=== PATIENT | male | born 1955 | race Caucasian/White ===

== ENCOUNTER 2022-02-14 11:22 | Inpatient (IN) | payer MEDICARE, MEDICAID ==
[~2022-02-14] VITALS: Ht 172.7 cm; Wt 82.7 kg
[~2022-02-14 11:22] MED LIST: ASPI-1497 PO; ATOR10TA69 PO; GLIP10TA10 PO; LEVO100T9 PO; LISI30TA36 PO; METF-416 PO
[2022-02-14] MEDS ORDERED: PANTOPRAZOLE 80 MG in SODIUM CHLORIDE 0.9% 100 ML IV SCH ×2 (12:00→14:00)
[2022-02-14 13:53] LABS: BASOPHILS % 0.4 % (0.0-2.0); EOSINOPHILS % 0.3 % (0.0-5.0); LYMPHOCYTES % 10.6 % (20.0-50.0); MEAN CORPUSCULAR HEMOGLOBIN 23.9 pg (28.0-32.0); MEAN CORPUSCULAR VOLUME 76.7 fL (80.0-94.0); MEAN PLATELET VOLUME 7.3 fl (7.4-10.4); MONOCYTES % 7.1 % (2.0-8.0); NEUTROPHILS % 81.6 % (40.0-76.0); PLATELET 177 x1000/uL (130-400); RED BLOOD CELL COUNT 2.55 mill/uL (4.7-6.1); RED CELL DISTRIBUTION WIDTH 21.1 % (11.6-14.6)
[2022-02-14 14:00] LABS: CHLORIDE 103 mEq/L (98-107)
[2022-02-14 14:01] LABS: HEMATOCRIT. 19.6 % (42.0-52.0); HEMOGLOBIN. 6.1 g/dL (14.0-18.0)
[2022-02-14 14:07] LABS: INR 1.1; PARTIAL THROMBOPLASTIN TIME 23.7 sec (23.4-31.0); PROTHROMBIN TIME 11.3 sec (9.6-11.0)
[2022-02-14 17:18] LABS: CLARITY URINE CLEAR (CLEAR); COLOR URINE YELLOW (YELLOW); KETONES URINE NEGATIVE (NEGATIVE); LEUKOCYTE ESTERASE URINE 1+ (NEGATIVE); NITRITE URINE NEGATIVE (NEGATIVE); OCCULT BLOOD URINE NEGATIVE (NEGATIVE); PROTEIN URINE TRACE (NEGATIVE); UROBILINOGEN URINE 0.2 E.U./dL (0.2-1.0)
[2022-02-14 22:07] VITALS: BP 128/68
[2022-02-14 22:10] VITALS: BP 128/68
[2022-02-14] MEDS ORDERED: DEXTROSE 50% WATER 50ML SYRINGE IV PRN (23:45)
[2022-02-15] VITALS (11 sets, daily range): BP systolic 105–127; BP diastolic 51–70
[2022-02-15 01:01] LABS: BASOPHILS % 0.6 % (0.0-2.0); EOSINOPHILS % 1.2 % (0.0-5.0); HEMATOCRIT. 21.7 % (42.0-52.0); LYMPHOCYTES % 16.2 % (20.0-50.0); MEAN CORPUSCULAR HEMOGLOBIN 24.8 pg (28.0-32.0); MEAN CORPUSCULAR VOLUME 78.1 fL (80.0-94.0); MONOCYTES % 7.7 % (2.0-8.0); NEUTROPHILS % 74.3 % (40.0-76.0); PLATELET 127 x1000/uL (130-400); RED BLOOD CELL COUNT 2.78 mill/uL (4.7-6.1); RED CELL DISTRIBUTION WIDTH 22.8 % (11.6-14.6)
[2022-02-15 01:06] LABS: HEMOGLOBIN. 6.9 g/dL (14.0-18.0)
[2022-02-15 01:10] LABS: CHLORIDE 107 mEq/L (98-107)
[2022-02-15] MEDS: SODIUM CHL 0.9% + KCL 20MEQ/L 1,000 ML IV SCH ×2 (01:38→08:44)
[2022-02-15] MEDS: OCTREOTIDE 1,000 MCG in SODIUM CHLORIDE 0.9% 98 ML IV SCH ×2 (04:15→21:41)
[2022-02-15 04:41] LABS: HEMATOCRIT 24.7 % (42.0-52.0); HEMOGLOBIN 7.8 g/dL (14.0-18.0)
[2022-02-15] MEDS: PANTOPRAZOLE 80 MG in SODIUM CHLORIDE 0.9% 100 ML IV SCH ×2 (06:05→13:00)
[2022-02-15] MEDS: BLOOD SUGAR DIAGNOSTIC STRIP TEST SCH ×4 (06:37→21:35)
[2022-02-15] MEDS: INSULIN LISPRO 100 UNITS/ML SUBCUT SCH ×4 (06:38→21:43)
[2022-02-15 13:38] LABS: INR 1.1; PROTHROMBIN TIME 11.4 sec (9.6-11.0)
[2022-02-15 13:53] LABS: TOTAL IRON BINDING CAPACITY 408 ug/dL (250-450)
[2022-02-15 14:25] LABS: FOLIC ACID (FOLATE) SERUM > 20.00 ng/mL (>5.38); VITAMIN B12 SERUM > 200.0 pg/mL (211-911)
[2022-02-15 15:25] LABS: FERRITIN 24 ng/mL (22-322)
[2022-02-15] MEDS ORDERED: PROPOFOL 200MG/20ML VIAL IV ONE (16:30)
[2022-02-15] MEDS: PANTOPRAZOLE SODIUM 40 MG/VIAL IV SCH (19:15)
[2022-02-16] VITALS (10 sets, daily range): BP systolic 102–128; BP diastolic 52–84
[2022-02-16] MEDS: ACETAMINOPHEN 650MG/20.3ML UDC PO PRN ×2 (02:58→23:31)
[2022-02-16] MEDS: BLOOD SUGAR DIAGNOSTIC STRIP TEST SCH ×4 (05:47→20:28)
[2022-02-16] MEDS: PANTOPRAZOLE SODIUM 40 MG/VIAL IV SCH ×2 (05:57→17:33)
[2022-02-16] MEDS: INSULIN LISPRO 100 UNITS/ML SUBCUT SCH ×4 (06:02→20:36)
[2022-02-16 07:51] LABS: BASOPHILS % 0.7 % (0.0-2.0); EOSINOPHILS % 1.8 % (0.0-5.0); HEMATOCRIT. 22.9 % (42.0-52.0); HEMOGLOBIN. 7.4 g/dL (14.0-18.0); LYMPHOCYTES % 13.5 % (20.0-50.0); MEAN CORPUSCULAR HEMOGLOBIN 25.4 pg (28.0-32.0); MEAN CORPUSCULAR VOLUME 78.6 fL (80.0-94.0); MEAN PLATELET VOLUME 7.6 fl (7.4-10.4); MONOCYTES % 6.4 % (2.0-8.0); NEUTROPHILS % 77.6 % (40.0-76.0); PLATELET 116 x1000/uL (130-400); RED BLOOD CELL COUNT 2.91 mill/uL (4.7-6.1); RED CELL DISTRIBUTION WIDTH 21.6 % (11.6-14.6)
[2022-02-16] MEDS: SODIUM CHL 0.9% + KCL 20MEQ/L 1,000 ML IV SCH (08:34)
[2022-02-16 10:34] LABS: CHLORIDE 106 mEq/L (98-107)
[2022-02-16] MEDS ORDERED: SUCR1TAB MT (10:51)
[2022-02-16] MEDS ORDERED: OMEP40CA20 MT (10:51)
[2022-02-16] MEDS: IRON SUCROSE COMPLEX 100 MG/5 ML ML IV SCH (11:46)
[2022-02-16] MEDS: LACTULOSE 20G/30ML UDC PO SCH ×2 (15:38→21:04)
[2022-02-16] MEDS: OCTREOTIDE 1,000 MCG in SODIUM CHLORIDE 0.9% 98 ML IV SCH (18:24)
[2022-02-16] MEDS ORDERED: PROP10TA10 MT (21:21)
[2022-02-17] VITALS: BP 117/78
[2022-02-17] MEDS: SODIUM CHL 0.9% + KCL 20MEQ/L 1,000 ML IV SCH (01:56)
[2022-02-17 03:59] VITALS: BP 102/66
[2022-02-17] MEDS: LACTULOSE 20G/30ML UDC PO SCH ×3 (05:25→21:22)
[2022-02-17] MEDS: PANTOPRAZOLE SODIUM 40 MG/VIAL IV SCH ×2 (06:03→17:36)
[2022-02-17] MEDS: BLOOD SUGAR DIAGNOSTIC STRIP TEST SCH ×4 (06:05→20:39)
[2022-02-17] MEDS: INSULIN LISPRO 100 UNITS/ML SUBCUT SCH ×4 (06:05→20:39)
[2022-02-17 06:44] LABS: CHLORIDE 107 mEq/L (98-107)
[2022-02-17 06:54] LABS: BASOPHILS % 0.8 % (0.0-2.0); EOSINOPHILS % 2.7 % (0.0-5.0); HEMATOCRIT. 25.3 % (42.0-52.0); HEMOGLOBIN. 8.3 g/dL (14.0-18.0); LYMPHOCYTES % 17.1 % (20.0-50.0); MEAN CORPUSCULAR HEMOGLOBIN 25.9 pg (28.0-32.0); MEAN CORPUSCULAR VOLUME 78.9 fL (80.0-94.0); MEAN PLATELET VOLUME 7.7 fl (7.4-10.4); MONOCYTES % 8.2 % (2.0-8.0); NEUTROPHILS % 71.2 % (40.0-76.0); PLATELET 116 x1000/uL (130-400); RED BLOOD CELL COUNT 3.21 mill/uL (4.7-6.1); RED CELL DISTRIBUTION WIDTH 20.7 % (11.6-14.6)
[2022-02-17 08:00] VITALS: BP 103/70
[2022-02-17] MEDS: PROPRANOLOL HCL 10MG TABLET PO SCH (08:33)
[2022-02-17] MEDS: IRON SUCROSE COMPLEX 100 MG/5 ML ML IV SCH (09:56)
[2022-02-17] MEDS: PIPERACILLIN/TAZOBACTAM 3.375 G in DEXTROSE 5% WATER 50 ML IV SCH ×2 (10:30→21:22)
[2022-02-17 12:00] VITALS: BP 117/70
[2022-02-17] MEDS: FUROSEMIDE 100MG/10ML VIAL IVP SCH (16:17)
[2022-02-17 16:30] VITALS: BP 123/75
[2022-02-17 20:00] VITALS: BP 114/63
[2022-02-17 20:51] LABS: CLARITY URINE HAZY (CLEAR); COLOR URINE DARK YELLOW (YELLOW); PROTEIN URINE 2+ (NEGATIVE); SPECIFIC GRAVITY URINE 1.015 (1.005-1.030)
[2022-02-17 20:52] LABS: KETONES URINE NEGATIVE (NEGATIVE); LEUKOCYTE ESTERASE URINE 1+ (NEGATIVE); NITRITE URINE NEGATIVE (NEGATIVE); OCCULT BLOOD URINE NEGATIVE (NEGATIVE); UROBILINOGEN URINE 0.2 E.U./dL (0.2-1.0)
[2022-02-18] VITALS: BP 108/45
[2022-02-18 04:00] VITALS: BP 95/54
[2022-02-18] MEDS: LACTULOSE 20G/30ML UDC PO SCH ×3 (05:42→22:01)
[2022-02-18] MEDS: PANTOPRAZOLE SODIUM 40 MG/VIAL IV SCH ×2 (05:42→17:06)
[2022-02-18] MEDS: PIPERACILLIN/TAZOBACTAM 3.375 G in DEXTROSE 5% WATER 50 ML IV SCH ×3 (05:42→22:01)
[2022-02-18] MEDS: BLOOD SUGAR DIAGNOSTIC STRIP TEST SCH ×4 (05:42→20:08)
[2022-02-18] MEDS: INSULIN LISPRO 100 UNITS/ML SUBCUT SCH ×4 (05:42→20:08)
[2022-02-18 05:59] LABS: BASOPHILS % 0.8 % (0.0-2.0); EOSINOPHILS % 2.9 % (0.0-5.0); HEMATOCRIT. 26.3 % (42.0-52.0); HEMOGLOBIN. 8.4 g/dL (14.0-18.0); LYMPHOCYTES % 18.5 % (20.0-50.0); MEAN CORPUSCULAR HEMOGLOBIN 25.3 pg (28.0-32.0); MEAN PLATELET VOLUME 7.7 fl (7.4-10.4); MONOCYTES % 8.3 % (2.0-8.0); NEUTROPHILS % 69.5 % (40.0-76.0); PLATELET 128 x1000/uL (130-400); RED BLOOD CELL COUNT 3.33 mill/uL (4.7-6.1); RED CELL DISTRIBUTION WIDTH 21.4 % (11.6-14.6)
[2022-02-18 06:36] LABS: CHLORIDE 107 mEq/L (98-107)
[2022-02-18 07:59] VITALS: BP 118/72
[2022-02-18] MEDS: FUROSEMIDE 100MG/10ML VIAL IVP SCH ×2 (08:16→16:33)
[2022-02-18] MEDS: PROPRANOLOL HCL 10MG TABLET PO SCH (08:17)
[2022-02-18] MEDS ORDERED: POTASSIUM CHLORIDE 20MEQ/PACKET PO NR (09:15)
[2022-02-18] MEDS: IRON SUCROSE COMPLEX 100 MG/5 ML ML IV SCH (09:15)
[2022-02-18 12:00] VITALS: BP 109/70
[2022-02-18 15:32] LABS: HEPATITIS B SURFACE ANTIGEN NEGATIVE
[2022-02-18] MEDS ORDERED: METOLAZONE 2.5MG TABLET PO NR (15:45)
[2022-02-18 15:48] VITALS: BP 117/69
[2022-02-18 20:00] VITALS: BP 124/77
[2022-02-19] VITALS: BP 118/73
[2022-02-19 04:00] VITALS: BP 106/57
[2022-02-19] MEDS: BLOOD SUGAR DIAGNOSTIC STRIP TEST SCH ×4 (05:54→21:28)
[2022-02-19] MEDS: PIPERACILLIN/TAZOBACTAM 3.375 G in DEXTROSE 5% WATER 50 ML IV SCH ×3 (05:55→21:31)
[2022-02-19] MEDS: PANTOPRAZOLE SODIUM 40 MG/VIAL IV SCH ×2 (05:57→17:50)
[2022-02-19] MEDS: LACTULOSE 20G/30ML UDC PO SCH ×3 (05:57→21:31)
[2022-02-19] MEDS: FUROSEMIDE 100MG/10ML VIAL IVP SCH ×2 (05:57→16:21)
[2022-02-19] MEDS: INSULIN LISPRO 100 UNITS/ML SUBCUT SCH ×4 (06:33→21:27)
[2022-02-19 07:34] LABS: BASOPHILS % 1.1 % (0.0-2.0); EOSINOPHILS % 3.1 % (0.0-5.0); HEMATOCRIT. 27.5 % (42.0-52.0); HEMOGLOBIN. 9.1 g/dL (14.0-18.0); LYMPHOCYTES % 17.7 % (20.0-50.0); MEAN CORPUSCULAR HEMOGLOBIN 26.4 pg (28.0-32.0); MEAN CORPUSCULAR VOLUME 79.6 fL (80.0-94.0); MEAN PLATELET VOLUME 7.7 fl (7.4-10.4); MONOCYTES % 7.1 % (2.0-8.0); PLATELET 150 x1000/uL (130-400); RED BLOOD CELL COUNT 3.45 mill/uL (4.7-6.1); RED CELL DISTRIBUTION WIDTH 21.3 % (11.6-14.6)
[2022-02-19 07:48] LABS: CHLORIDE 101 mEq/L (98-107)
[2022-02-19 07:52] VITALS: BP 116/71
[2022-02-19] MEDS: POTASSIUM CHLORIDE 20MEQ TABLET SR PO SCH ×3 (08:38→16:21)
[2022-02-19] MEDS: PROPRANOLOL HCL 10MG TABLET PO SCH (08:38)
[2022-02-19 08:57] LABS: PHOSPHORUS 1.5 mg/dL (2.5-4.9)
[2022-02-19] MEDS ORDERED: FUROSEMIDE 100MG/10ML VIAL IVP SCH (09:00)
[2022-02-19] MEDS: IRON SUCROSE COMPLEX 100 MG/5 ML ML IV SCH (10:41)
[2022-02-19 11:43] VITALS: BP 106/66
[2022-02-19] MEDS ORDERED: MAGNESIUM 2 G PREMIX 50 ML IV NR (12:00)
[2022-02-19] MEDS ORDERED: POTASSIUM PHOS,M-BASIC-D-BASIC 20 MMOL in DEXT 5% WATER 243.3333 ML IV NR (12:00)
[2022-02-19 15:45] VITALS: BP 112/74
[2022-02-19 20:00] VITALS: BP 120/79
[2022-02-19] MEDS ORDERED: POTASSIUM CHLORIDE 20MEQ/PACKET PO NR (21:00)
[2022-02-20] VITALS: BP 118/69
[2022-02-20] MEDS: INSULIN LISPRO 100 UNITS/ML SUBCUT SCH ×2 (05:50→12:33)
[2022-02-20] MEDS: BLOOD SUGAR DIAGNOSTIC STRIP TEST SCH ×2 (05:50→12:08)
[2022-02-20 06:05] VITALS: BP 106/45
[2022-02-20 06:05] LABS: BASOPHILS % 0.7 % (0.0-2.0); HEMATOCRIT. 28.4 % (42.0-52.0); HEMOGLOBIN. 9.4 g/dL (14.0-18.0); LYMPHOCYTES % 15.9 % (20.0-50.0); MEAN CORPUSCULAR HEMOGLOBIN 26.5 pg (28.0-32.0); MEAN CORPUSCULAR VOLUME 80.3 fL (80.0-94.0); MEAN PLATELET VOLUME 8.1 fl (7.4-10.4); MONOCYTES % 7.5 % (2.0-8.0); NEUTROPHILS % 73.9 % (40.0-76.0); PLATELET 153 x1000/uL (130-400); RED BLOOD CELL COUNT 3.54 mill/uL (4.7-6.1); RED CELL DISTRIBUTION WIDTH 21.9 % (11.6-14.6)
[2022-02-20] MEDS: LACTULOSE 20G/30ML UDC PO SCH ×2 (06:16→14:40)
[2022-02-20] MEDS: PIPERACILLIN/TAZOBACTAM 3.375 G in DEXTROSE 5% WATER 50 ML IV SCH ×2 (06:16→14:41)
[2022-02-20] MEDS: PANTOPRAZOLE SODIUM 40 MG/VIAL IV SCH (06:18)
[2022-02-20] MEDS: FUROSEMIDE 100MG/10ML VIAL IVP SCH (06:56)
[2022-02-20 08:00] VITALS: BP 110/66
[2022-02-20 08:15] LABS: CHLORIDE 97 mEq/L (98-107)
[2022-02-20] MEDS: PROPRANOLOL HCL 10MG TABLET PO SCH (08:50)
[2022-02-20] MEDS: POTASSIUM CHLORIDE 20MEQ TABLET SR PO SCH (08:50)
[2022-02-20] MEDS ORDERED: SPIR100T5 MT (12:19)
[2022-02-20] MEDS ORDERED: FURO-151 MT (12:19)
[2022-02-20 12:30] VITALS: BP 90/47
[2022-02-20] MEDS ORDERED: MAGNESIUM/ALUMINUM HYDROXIDE/SIMETHICONE 30ML UDC PO NR (13:30)
[2022-02-20 15:44] VITALS: BP 107/62
[2022-02-20 16:00] VITALS: BP 107/62
== END 2022-02-20 17:25 | disposition home or self-care (01) | DRG 432 ==
LOC: ER 11:22 → EDBEDREQ 18:28 → EDBEDREQTM 18:28 → 8WST 18:37 → EDBEDREQSVC 18:44 → EDBEDREQ 18:44
PROVIDERS: ADMIT Internal Medicine; ATTEND Internal Medicine
PROC: 06L38CZ Occlusion of Esophageal Vein with Extraluminal Device, Via Natural or Artificial Opening Endoscopic (ICD-10-PCS; principal; 2022-02-15)
PROC: 30233N1 Transfusion of Nonautologous Red Blood Cells into Peripheral Vein, Percutaneous Approach (ICD-10-PCS; 2022-02-15)
DX: K70.31 Alcoholic cirrhosis of liver with ascites (principal); K25.4 Chronic or unspecified gastric ulcer with hemorrhage; E44.0 Moderate protein-calorie malnutrition; K76.6 Portal hypertension; E44.1 Mild protein-calorie malnutrition; I85.10 Secondary esophageal varices without bleeding; E11.9 Type 2 diabetes mellitus without complications; E78.5 Hyperlipidemia, unspecified; D50.9 Iron deficiency anemia, unspecified; E87.6 Hypokalemia; I11.0 Hypertensive heart disease with heart failure; I50.9 Heart failure, unspecified; K31.89 Other diseases of stomach and duodenum; R60.9 Edema, unspecified; K44.9 Diaphragmatic hernia without obstruction or gangrene; K59.00 Constipation, unspecified; M79.89 Other specified soft tissue disorders; F10.10 Alcohol abuse, uncomplicated; Z20.822 Contact with and (suspected) exposure to COVID-19; Z68.27 Body mass index [BMI] 27.0-27.9, adult; Z79.899 Other long term (current) drug therapy; Z87.11 Personal history of peptic ulcer disease
CPT/HCPCS: 36415; 71045; 80048; 80053; 80076; 81003; 82140; 82270; 82607; 82728; 82746; 82962; 83036; 83540; 83550; 83735; 83880; 84100; 84132; 84484; 85014; 85018; 85025; 85044; 85049; 85384; 86705; 86709; 86803; 86850; 86900; 86920; 87340; 87426; 93005; 99285; C9113; J1815; J1940; J2354; J2543; J2704; J3475; J3480; J3490; J7050; J7060; P9016

== ENCOUNTER 2022-07-31 13:38 | Emergency (ER) | payer OTHER, MEDICAID ==
[~2022-07-31] VITALS: Ht 177.8 cm; Wt 86.0 kg
[~2022-07-31 13:38] MED LIST changes: -ASPI-1497 PO; +FURO-151 MT; +OMEP40CA20 MT; +PROP10TA10 MT; +SPIR100T5 MT; +SUCR1TAB MT
[2022-07-31] MEDS ORDERED: KETOROLAC 60MG/2ML VIAL IM ONE (14:30)
[2022-07-31 14:50] VITALS: BP 98/58
[2022-07-31] MEDS ORDERED: IBUP-2028 MT (16:27)
== END 2022-07-31 17:05 | disposition home or self-care (01) ==
LOC: ER 14:33
DX: M54.50 Low back pain, unspecified (principal); R07.81 Pleurodynia; E11.9 Type 2 diabetes mellitus without complications; I10 Essential (primary) hypertension; M54.2 Cervicalgia; V49.49XA Driver injured in collision with other motor vehicles in traffic accident, initial encounter; Y93.89 Activity, other specified; Y92.89 Other specified places as the place of occurrence of the external cause; Y99.8 Other external cause status; Z79.899 Other long term (current) drug therapy
CPT/HCPCS: 70450; 70486; 71111; 72070; 72100; 72125; 96372; 99285; J1885

== ENCOUNTER 2023-03-06 14:15 | Emergency (ER) | payer OTHER, MEDICAID ==
[~2023-03-06] VITALS: Ht 172.7 cm; Wt 82.0 kg
[~2023-03-06 14:15] MED LIST changes: +IBUP-2028 MT
[2023-03-06 14:41] VITALS: BP 145/101; PULSE 98; RESP 16; TEMP 97.6; O2SAT 99
[2023-03-06 14:46] LABS: BASOPHILS % 1.1 % (0.0-2.0); EOSINOPHILS % 4.8 % (0.0-5.0); HEMATOCRIT. 43.7 % (42.0-52.0); HEMOGLOBIN. 14.4 g/dL (14.0-18.0); LYMPHOCYTES % 19.6 % (20.0-50.0); MEAN CORPUSCULAR HEMOGLOBIN 28.4 pg (28.0-32.0); MEAN CORPUSCULAR HGB CONC 33.1 g/dL (31.0-37.0); MEAN CORPUSCULAR VOLUME 85.7 fL (80.0-94.0); MEAN PLATELET VOLUME 7.7 fl (7.4-10.4); MONOCYTES % 9.2 % (2.0-8.0); NEUTROPHILS % 65.3 % (40.0-76.0); PLATELET 223 x1000/uL (130-400); RED BLOOD CELL COUNT 5.09 mill/uL (4.7-6.1); WHITE BLOOD COUNT 8.1 x1000/uL (4.5-11.0)
[2023-03-06 14:54] LABS: CHLORIDE 102 mEq/L (98-107); INDEX HEMOLYSI 1 (1-3); INDEX ICTERIC 1 (1-4); INDEX LIPEMIC 1 (1-3); POTASSIUM 3.9 mEq/L (3.5-5.1); SODIUM 139 mEq/L (136-145)
[2023-03-06 15:04] LABS: ALANINE AMINOTRANSFERASE 65 IU/L (13-61); ALBUMIN 4.5 g/dL (3.4-5.0); ASPARTATE AMINOTRANSFERASE 46 IU/L (15-37); BILIRUBIN TOTAL 1.7 mg/dL (0.1-1.0); CALCIUM 9.9 mg/dL (8.5-10.1); CARBON DIOXIDE 28 mEq/L (21-32); CREATININE 1.6 mg/dL (0.6-1.3); GLUCOSE 103 mg/dL (70-105); PROTEIN TOTAL 8.9 g/dL (6.0-8.3); TROPONIN I HIGH SENSITIVITY 62 ng/L (<78); UREA NITROGEN BLOOD 38 mg/dL (7-21)
[2023-03-06] MEDS ORDERED: ONDANSETRON 4MG ODT PO STA (16:46)
[2023-03-06 17:42] LABS: NT PRO B-TYPE NATRIURETIC PEP 44 pg/mL (5-125); TROPONIN I HIGH SENSITIVITY 61 ng/L (<78)
[2023-03-06] MEDS ORDERED: ONDA4TAB11 PO (18:46)
== END 2023-03-06 18:55 | disposition home or self-care (01) ==
LOC: ER 14:15
DX: R11.2 Nausea with vomiting, unspecified (principal); I10 Essential (primary) hypertension; E11.9 Type 2 diabetes mellitus without complications; Z79.899 Other long term (current) drug therapy
CPT/HCPCS: 36415; 71045; 80053; 83880; 84484; 85025; 93005; 99285